=== PATIENT | female | born 1950 | race Caucasian/White ===

== ENCOUNTER 2018-01-05 08:14 | Emergency (ER) | payer MEDICARE, OTHER ==
[~2018-01-05] VITALS: Ht 165.1 cm; Wt 117.9 kg
[~2018-01-05 08:14] MED LIST: NORVASC 2.5 MG2.5 MG PO; TOPROL XL50 MG PO
[2018-01-05] MEDS ORDERED: NORVASC 5 MG TAB5 MG PO (08:35)
[2018-01-05] MEDS ORDERED: HYDROCHLOROTH12.5 M2 PO (08:36)
[2018-01-05 09:10] LABS: URINE BILIRUBIN NEGATIVE (Negative); URINE BLOOD 3+ (Negative); URINE CLARITY SL CLOUDY; URINE GLUCOSE-RANDOM NEGATIVE (Negative); URINE KETONES NEGATIVE (Negative); URINE LEUKOCYTES-REFLEX TRACE (Negative); URINE NITRITE-REFLEX NEGATIVE (Negative); URINE PROTEIN 1+ (Negative); URINE UROBILINOGEN 0.2 E.U./dl (0.2-1.0)
[2018-01-05 09:24] LABS: URINE COLOR OTHER
[2018-01-05 09:25] LABS: CASTS None Seen /LPF (None Seen); CRYSTALS None Seen /LPF (None Seen); SQUAMOUS 4-10 Moderate /LPF (0-3); URINE RBC >20 Many /HPF (0-2)
[2018-01-05 09:26] LABS: BACTERIA-REFLEX 1-9 Few /HPF (None Seen); URINE WBC-REFLEX 6-15 Few /HPF (0-5)
[2018-01-05 09:36] LABS: CALCIUM 9.8 mg/dL (8.5-10.1); CREATININE 0.9 mg/dL (0.6-1.3); POTASSIUM 3.9 mmol/L (3.5-5.1)
[2018-01-05 09:38] LABS: APTT 28.7 Seconds (25.0-31.3); PROTIME 9.5 Seconds (9.20-11.50)
[2018-01-05 09:40] LABS: ABSOLUTE EOSINOPHILS 0.2 thou/uL (0.0-0.7); ABSOLUTE LYMPHOCYTES 1.9 thou/uL (0.8-5.3); ABSOLUTE MONOCYTES 0.7 thou/uL (0.0-1.2); ABSOLUTE NEUTROPHILS 5.7 thou/uL (1.6-8.1); BASOPHILS 0.5 %; EOSINOPHILS 2.6 %; HEMATOCRIT 48.1 % (37.0-47.0); HEMOGLOBIN 16.1 gm/dL (12.0-15.0); LYMPHOCYTES 22.2 %; MCH 29.5 pg (26.0-34.0); MCHC 33.5 g/dL (28.0-37.0); MCV 87.9 fL (80.0-100.0); MONOCYTES 8.3 %; MPV 7.6 fl. (7.2-11.1); NUCLEATED RBCS 0 /100WBC; PLATELET COUNT* 332 thou/uL (150-400); POLYS 66.4 %; RBC 5.48 mil/uL (4.20-5.00); RDW-CV 14.2 % (10.5-14.5); WBC 8.6 thou/uL (4.0-11.0)
[2018-01-05 09:41] LABS: ALBUMIN 4.1 g/dL (3.4-5.0); TOTAL BILIRUBIN 0.7 mg/dL (<0.1-1.0); TOTAL PROTEIN 8.6 g/dL (6.4-8.2)
[2018-01-05] MEDS ORDERED: ZOFRAN ODT4 MG PO (11:32)
[2018-01-05] MEDS ORDERED: CYCLOBENZAPRINE5 MG PO (11:32)
[2018-01-05] MEDS ORDERED: NORCO 5-325 TA1 EACH PO (11:32)
[2018-01-05 11:40] VITALS: BP 148/74
== END 2018-01-05 11:40 | disposition home or self-care (01) ==
LOC: M.ERS 08:14
PROVIDERS: Personal Emergency Response Attendant
DX: N93.8 Other specified abnormal uterine and vaginal bleeding (principal); Z88.5 Allergy status to narcotic agent

== ENCOUNTER → 2020-06-10 | Outpatient (CLI) | payer MEDICARE, OTHER ==
[~2020-06-10] MED LIST changes: +CYCLOBENZAPRINE5 MG PO; +HYDROCHLOROTH12.5 M2 PO; +NORCO 5-325 TA1 EACH PO; +NORVASC 5 MG TAB5 MG PO; +ZOFRAN ODT4 MG PO
== END ==
LOC: M.RAD 14:12
PROVIDERS: ATTEND Family Medicine
DX: Z12.31 Encounter for screening mammogram for malignant neoplasm of breast (principal); Z13.820 Encounter for screening for osteoporosis; E23.0 Hypopituitarism; E34.8 Other specified endocrine disorders

== ENCOUNTER 2021-05-02 17:33 | Emergency (ER) | payer MEDICARE, OTHER ==
[~2021-05-02] VITALS: Ht 162.6 cm; Wt 117.9 kg
[2021-05-02 17:54] LABS: ABSOLUTE BASOPHILS 0.1 thou/uL (0.0-0.2); ABSOLUTE EOSINOPHILS 0.4 thou/uL (0.0-0.7); ABSOLUTE LYMPHOCYTES 4.3 thou/uL (0.8-5.3); ABSOLUTE MONOCYTES 1.2 thou/uL (0.0-1.2); BASOPHILS 1.1 %; HEMATOCRIT 43.8 % (37.0-47.0); HEMOGLOBIN 14.9 gm/dL (12.0-15.0); LYMPHOCYTES 35.8 %; MCH 30.2 pg (26.0-34.0); MCHC 34.1 g/dL (28.0-37.0); MCV 88.5 fL (80.0-100.0); MONOCYTES 9.8 %; MPV 7.2 fl. (7.2-11.1); NUCLEATED RBCS 0 /100WBC; PLATELET COUNT* 339 thou/uL (150-400); POLYS 50.3 %; RBC 4.95 mil/uL (4.20-5.00); RDW-CV 14.2 % (10.5-14.5)
[2021-05-02 18:00] LABS: CALCIUM 9.9 mg/dL (8.5-10.1); CREATININE 0.8 mg/dL (0.6-1.3); POTASSIUM 3.7 mmol/L (3.5-5.1)
[2021-05-02 18:04] LABS: ALBUMIN 4.4 g/dL (3.4-5.0); MAGNESIUM 2.1 mg/dL (1.8-2.4); TOTAL BILIRUBIN 0.5 mg/dL (<0.1-1.0); TOTAL PROTEIN 8.4 g/dL (6.4-8.2)
[2021-05-02 20:08] VITALS: BP 124/78
--- NOTE | 2021-05-03 09:02 | EKG ---
[place] [address] ELECTROCARDIOGRAM REPORT Name: SADIA LOCKHART Room: [facility]#: [id number] Admission: 05/02/21 Attend Phys: Discharge: 05/02/21 Date of : 54 Date of Service: 05/02/21 1739 Report #: [id number] THIS REPORT FOR: //name// [facility] ED Test Date: 2021-05-02 Test Time: 17:39:05 Pat Name: SADIA LOCKHART Department: Room: Gender: Sap Abap Developer: WILLI : 1950 Requested By: Pipe Levy Order Number: [id number] MD: Serjio Fritz Measurements Intervals [place] Rate: 172 P: 0 [place]: QRS: -74 QRSD: 103 T: 64 QT: 284 QTc: 481 Interpretive Statements Supraventricular tachycardia Left anterior fascicular block Abnormal R-wave progression, late transition ST depression, probably rate related Baseline wander in lead(s) II Compared to ECG 04/15/2012 09:04:56 Left anterior fascicular block now present ST (T wave) deviation now present Sinus rhythm no longer present Electronically Signed On 05-03-2021 9:02:28 CDT by Serjio Fritz [email or web address] <ELECTRONICALLY SIGNED> By: Serjio Fritz MD, [facility] 05/03/21 0902 [id number] Serjio Fritz MD, [facility] /EPI
--- NOTE | 2021-05-03 09:03 | EKG ---
[place] [address] ELECTROCARDIOGRAM REPORT Name: SADIA LOCKHART Room: [facility]#: [id number] Admission: 05/02/21 Attend Phys: Discharge: 05/02/21 Date of : 54 Date of Service: 05/02/21 1757 Report #: [id number] THIS REPORT FOR: //name// [facility] ED Test Date: 2021-05-02 Test Time: 17:57:39 Pat Name: SADIA LOCKHART Department: Room: Gender: Radioactivity Technician: WILLI : 1950 Requested By: Pipe Levy Order Number: [id number] MD: Serjio Fritz Measurements Intervals [place] Rate: 98 P: 54 WI: 202 QRS: -38 QRSD: 109 T: 54 QT: 359 QTc: 459 Interpretive Statements Sinus rhythm Left axis deviation compared to ECG 05/02/2021 17:39:05 Supraventricular tachycardia no longer present Left anterior fascicular block no longer present ST (T wave) deviation no longer present Electronically Signed On 05-03-2021 9:02:54 CDT by Serjio Fritz [email or web address] <ELECTRONICALLY SIGNED> By: Serjio Fritz MD, [facility] 05/03/21 0902 [id number] Serjio Fritz MD, [facility] /EPI
== END 2021-05-02 20:08 | disposition home or self-care (01) ==
LOC: M.ERS 17:33
PROVIDERS: Emergency Medicine Emergency Medical Services
DX: I47.1 Supraventricular tachycardia (principal); Z88.5 Allergy status to narcotic agent